=== PATIENT | female | born 1970 | race Caucasian/White ===

== ENCOUNTER 2024-12-08 06:19 | Day surgery (SDC) | payer MEDICAID ==
[2024-12-08] MEDS: Scopalamine 1mg/3day Transdermal Patch TRDERM SCH (07:08)
[2024-12-08] MEDS: Lactated Ringers 1,000 ML IV SCH (07:21)
[2024-12-08] MEDS ORDERED: Neostigmine Methylsulfate 10 MG/10 ML MDV ONE (07:25)
[2024-12-08] MEDS ORDERED: Rocuronium 50 MG/5 ML Vial ONE (07:25)
[2024-12-08] MEDS ORDERED: fentaNYL 250 MCG/5 ML SDV ONE ×2 (07:25→08:25)
[2024-12-08] MEDS ORDERED: Dexamethasone 4 MG/ML SDV ONE (07:25)
[2024-12-08] MEDS ORDERED: Glycopyrrolate 0.2 MG/ML 5 ML MDV ONE (07:25)
[2024-12-08] MEDS ORDERED: Ondansetron 4 MG/2 ML SDV ONE (07:25)
[2024-12-08] MEDS ORDERED: diphenhydrAMINE 50 MG/ML SDV ONE (07:25)
[2024-12-08] MEDS ORDERED: Succinylcholine 200 MG/10 ML MDV ONE (07:25)
[2024-12-08] MEDS ORDERED: Propofol 200 MG/20 ML SDV ONE (07:25)
[2024-12-08 07:31] LABS: HEMATOCRIT 28.2 % (34.3-46.0); HEMOGLOBIN 8.2 g/dL (11.2-15.5); MEAN CORPUSCULAR HEMOGLOBIN 19.3 pg (31.6-35.5); MEAN CORPUSCULAR HGB CONC 29.1 g/dL (31.6-35.5); MEAN CORPUSCULAR VOLUME 66.5 fL (81.4-99.0); RED BLOOD CELL COUNT 4.24 M/uL (3.77-5.24); WHITE BLOOD CELL COUNT,WBC 4.3 K/uL (3.2-11.0)
[2024-12-08] MEDS: Clindamycin in 0.9 % Sod Chlor 900 MG in Premix Bag 1 BAG IV ONE (07:50)
[2024-12-08 07:51] LABS: A/G RATIO 0.9 (1.2-2.2); ALANINE AMINOTRANSFERASE,ALT 22 U/L (12-78); ALBUMIN 3.4 g/dL (3.4-5.0); ALKALINE PHOSPHATASE 113 U/L (46-116); ASPARTATE AMNIOTRANSFERASE,AST 34 U/L (15-37); BILIRUBIN TOTAL 0.4 mg/dL (0.2-1.0); BLOOD UREA NITROGEN,BUN 7 mg/dL (7-18); CALCIUM 9.4 mg/dL (8.5-10.1); CARBON DIOXIDE,CO2 25 mmol/L (21-32); CHLORIDE,CL 102 mmol/L (100-108); CREATININE 0.7 mg/dL (0.6-1.0); ESTIMATED GFR 103 mL/min (>60); GLUCOSE RANDOM 73 mg/dL (74-106); POTASSIUM,K 4.4 mmol/L (3.6-5.2); PROTEIN TOTAL,TP 7.1 g/dL (6.4-8.2); SODIUM,NA 138 mmol/L (140-148)
[2024-12-08 07:52] LABS: ANION GAP 15.4 mmol/L (5.0-14.0)
[2024-12-08] MEDS: Bupivacaine 0.25%/EPINEPHrine 1:200,000 30 ML SDV ONE (08:33)
[2024-12-08] MEDS ORDERED: ePHEDrine 50 MG/ML SDV ONE (08:45)
[2024-12-08] MEDS ORDERED: Lactated Ringers 1,000 ML ONE (08:46)
[2024-12-08] MEDS ORDERED: Sugammadex Sodium 200 MG/2 ML VIAL IV ONE (09:33)
[2024-12-08] MEDS: Ondansetron 4 MG/2 ML SDV IV PRN (11:02)
[2024-12-08] MEDS: Ketorolac 15 MG/ML SDV IVPUSH SCH (11:40)
[2024-12-08] MEDS: Non-Formulary Medication 1 Each TOP SCH (11:55)
[2024-12-08] MEDS ORDERED: Cyclobenzaprine 10 MG Tab PO SCH (14:00)
[2024-12-08] MEDS: oxyCODONE 5 MG Tab PO PRN (14:35)
[2024-12-08] MEDS: Acetaminophen 500 MG Tab PO SCH (14:35)
[2024-12-08] MEDS: Cyclobenzaprine 5 MG Tab PO SCH (14:36)
[2024-12-08] MEDS: Simethicone 125 MG Tab.Chew PO PRN (14:46)
[2024-12-08] MEDS: Pantoprazole 40 MG Delayed-Release Granules 1 Packet PO SCH (20:37)
[2024-12-08] MEDS: diphenhydrAMINE 25 MG/10 ML Cup PO PRN (23:39)
[2024-12-09 05:50] LABS: BASOPHILS PERCENT AUTO 0.4 % (0.1-1.3); EOSINOPHILS ABSOLUTE AUTO 0.19 K/uL (0.00-0.40); EOSINOPHILS PERCENT AUTO 3.6 % (0.0-5.4); HEMATOCRIT 24.8 % (34.3-46.0); HEMOGLOBIN 7.2 g/dL (11.2-15.5); IMMATURE GRAN PERCENT AUTO 0.4 % (0.0-0.7); LYMPHOCYTES ABSOLUTE AUTO 1.58 K/uL (0.8-3.3); LYMPHOCYTES PERCENT AUTO 29.9 % (11.4-47.7); MEAN CORPUSCULAR HEMOGLOBIN 19.4 pg (31.6-35.5); MEAN CORPUSCULAR VOLUME 66.7 fL (81.4-99.0); MONOCYTES ABSOLUTE AUTO 0.52 K/uL (0.20-0.90); MONOCYTES PERCENT AUTO 9.8 % (3.3-12.6); NEUTROPHILS ABSOLUTE AUTO 2.95 K/uL (1.0-7.6); NEUTROPHILS PERCENT AUTO 55.9 % (40.0-78.1); PLATELET COUNT,PLT 247 K/uL (130-375); RED BLOOD CELL COUNT 3.72 M/uL (3.77-5.24); WHITE BLOOD CELL COUNT,WBC 5.3 K/uL (3.2-11.0)
[2024-12-09 05:58] LABS: BASOPHILS ABSOLUTE AUTO 0.02 K/uL (0.00-0.10); IMMATURE GRAN ABSOLUTE AUTO 0.02 K/uL (0.00-0.23)
[2024-12-09] MEDS: FLUoxetine 20 MG Cap PO SCH (09:21)
[2024-12-09 17:16] VITALS: BP 137/70; PULSE 54
== END 2024-12-09 16:45 | disposition home or self-care (01) ==
LOC: JP.SDS 06:19 → JP.2SS 09:56 → JP.SDS 12-09 16:45
PROVIDERS: ATTEND Surgery
DX: K95.89 Other complications of other bariatric procedure (principal); K21.9 Gastro-esophageal reflux disease without esophagitis; K44.9 Diaphragmatic hernia without obstruction or gangrene; Z79.899 Other long term (current) drug therapy; Z88.8 Allergy status to other drugs, medicaments and biological substances; Z88.5 Allergy status to narcotic agent
CPT/HCPCS: 00790; 36415; 43280; 43659; 80053; 85025; 85027; 88305; A9270; J0330; J0737; J1100; J1200; J1596; J1885; J2405; J2704; J2710; J3010; J7120; J3490